=== PATIENT | female | born 1950 | race Caucasian/White ===

== ENCOUNTER 2016-07-02 18:37 | Emergency (ER) | payer OTHER ==
[~2016-07-02] VITALS: Wt 64.0 kg
[2016-07-02] MEDS ORDERED: ACETAMINOPHEN 325 MG TAB PO ONE (19:00)
[2016-07-02] MEDS ORDERED: IBUP400T22 PO (20:20)
[2016-07-02] MEDS ORDERED: TRAM50TA2 PO (20:20)
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
[2016-07-02 20:37] VITALS: BP 158/68; PULSE 74; RESP 16
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
== END 2016-07-02 20:38 | disposition home or self-care (01) ==
LOC: FTE 18:37
DX: S13.8XXA Sprain of joints and ligaments of other parts of neck, initial encounter (principal); S20.219A Contusion of unspecified front wall of thorax, initial encounter; R07.89 Other chest pain; V89.2XXA Person injured in unspecified motor-vehicle accident, traffic, initial encounter
CPT/HCPCS: 71010; 72040; Z7610; 93005